=== PATIENT | female | born 1965 | race Caucasian/White ===

== ENCOUNTER 2017-09-23 21:38 | Emergency (ER) | payer OTHER ==
[~2017-09-23] VITALS: Ht 152.4 cm; Wt 79.5 kg
[2017-09-23 21:41] VITALS: BP 172/94; PULSE 94; RESP 16; TEMP 98.8; O2SAT 95
--- NOTE | 2017-09-23 22:22 | RADRPT ---
EXAM DATE/TIME: 09/23/2017 22:03 [facility] COMPARISON: No previous studies available for comparison. INDICATIONS : Pain from fall. MEDICAL HISTORY : None. SURGICAL HISTORY : None. ENCOUNTER: Initial ACUITY: 1 day PAIN SCORE: 7/10 LOCATION: Lower back. FINDINGS: 3 views of lumbar spine. Bone alignment within normal limits. No evidence of fracture. Small endplat e osteophytes at L2-3 and L3-4. Moderate severity bony facet hypertrophy at L4-5 and L5-S1. Surgical clips in the right upper quadrant of the abdomen. Large endplate osteophytes anteriorly in the lower thoracic spine. 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 No evidence of fracture. Joel Molina MD on September 23, 2017 at 22:16 Board Certified Radiologist. This report was verified electronically.
--- NOTE | 2017-09-23 22:23 | RADRPT ---
EXAM DATE/TIME: 09/23/2017 22:04 [facility] COMPARISON: No previous studies available for comparison. INDICATIONS : Pain from fall. MEDICAL HISTORY : None. SURGICAL HISTORY : None. ENCOUNTER: Initial ACUITY: 1 day PAIN SCORE: 2/10 LOCATION: Right wrist. FINDINGS: 3 views right wrist. Bone alignment within normal limits. No evidence of fracture. Moderate-sized os teophytes and moderate narrowing of the thumb carpometacarpal joint. Small osteophyte at the scaphoid -trapezium-trapezoid joint and radiocarpal joint. 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 No evidence of fracture. Joel Molina MD on September 23, 2017 at 22:20 Board Certified Radiologist. This report was verified electronically.
--- NOTE | 2017-09-23 22:24 | RADRPT ---
EXAM DATE/TIME: 09/23/2017 22:00 [facility] COMPARISON: WRIST RIGHT COMPLETE ([id number]), September 23, 2017, 22:04. INDICATIONS : Pain from fall. MEDICAL HISTORY : None. SURGICAL HISTORY : None. ENCOUNTER: Initial ACUITY: 1 day PAIN SCORE: 2/10 LOCATION: Bilateral chest FINDINGS: Single AP view of the chest. The lungs are clear. Cardiomediastinal silhouette within normal limits. No evidence of pleural effusion or pneumothorax. CONCLUSION: No acute cardiopulmonary disease identified. Joel Molina MD on September 23, 2017 at 22:21 Board Certified Radiologist. This report was verified electronically.
[2017-09-23] MEDS ORDERED: IBUP1TAB5 PO (23:30)
[2017-09-23] MEDS ORDERED: CYCL10TA PO (23:30)
[2017-09-23] MEDS ORDERED: IBUPROFEN 600 MG TAB PO ONE (23:30)
[2017-09-23] MEDS ORDERED: CYCLOBENZAPRINE HCL 10 MG TAB PO ONE (23:30)
--- NOTE | 2017-09-23 23:31 | PD ---
HPI . Fall Chief Complaint: Fall Time Seen by Provider: 23:21 Travel History International Travel<30 days: No Contact w/Intl Traveler<30days: No Traveled to known affect area: No History of Present Illness HPI 2-year-old female status post fall onto her right buttocks and right side, the patient went to sit on a stool that slipped out from under her. Patient notes PAIN Right lower back, right wrist. Patient denies any head injury, loss of consciousness, neck pain or stiffness, focal weakness numbness or tingling or incontinence. PFSH Past Medical History Narrative Medical Patient denies any slipping past medical history Medical History: Denies Significant Hx Diminished Hearing: No ?: Not Menopausal: Yes Past Surgical History Cholecystectomy: Yes Social History Alcohol Use: No Tobacco Use: No Substance Use: No Allergies-Medications (Allergen,Severity, Reaction): Coded Allergies: No Known Allergies (Unverified , 09/23/17) Narrative Medication Allergies and medications reviewed Review of Systems Except as stated in HPI: all other systems reviewed are Neg General / Constitutional: No: Fever Eyes: No: Visual changes HENT: No: Headaches Cardiovascular: No: Chest Pain or Discomfort Respiratory: No: Shortness of Breath Gastrointestinal: No: Abdominal Pain Genitourinary: No: Dysuria Musculoskeletal: Positive: Arthralgias, Pain, No: Limited ROM Skin: No Rash Neurologic: No: Weakness Psychiatric: No: Depression Endocrine: No: Polydipsia Hematologic/Lymphatic: No: Easy Bruising Physical Exam Narrative GENERAL: Awake alert oriented 3 no acute distress SKIN: Warm and dry. Color is normal diaphoresis cyanosis or pallor HEAD: Atraumatic. Normocephalic. EYES: Pupils equal and round. No scleral icterus. No injection or drainage. ENT: No nasal bleeding or discharge. Mucous membranes pink and moist. NECK: Trachea midline. No JVD. CARDIOVASCULAR: Regular rate and rhythm. RESPIRATORY: No accessory muscle use. Clear to auscultation. Breath sounds equal bilaterally. Chest wall nontender GASTROINTESTINAL: Abdomen soft, non-tender, nondistended. Hepatic and splenic margins not palpable. MUSCULOSKELETAL: Right wrist mildly tender, no obvious lesions. NEUROLOGICAL: Awake and alert. No obvious cranial nerve deficits. Motor grossly within normal limits. Five out of 5 muscle strength in the arms and legs. Normal speech. PSYCHIATRIC: Appropriate mood and affect; insight and judgment normal. Data Data Last Documented VS Vital Signs Date Time Temp Pulse Resp B/P (MAP) Pulse Ox O2 Delivery O2 Flow Rate FiO2 09/23/17 21:41 98.8 94 16 172/94 (120) 95 Orders Orders Spine, Lumbar - Ltd (Ap & Lat) (09/23/17 ) Wrist, Complete ([id number]) (09/23/17 ) Chest, Single Ap (09/23/17 ) Ibuprofen (Motrin) (09/23/17 23:30) Cyclobenzaprine (Flexeril) (09/23/17 23:30) MDM Medical Decision Making Medical Screen Exam Complete: Yes Emergency Medical Condition: Yes Medical Record Reviewed: Yes Differential Diagnosis Right wrist injury, lower back injury, right chest wall injury Narrative Course Chest x-ray negative, right wrist x-ray negative, lumbar spine x-ray negative. Patient is ambulatory has full range of motion and no difficulty breathing. Discharge Diagnosis Primary Impression: Right wrist sprain Qualified Codes: S63.501A - Unspecified sprain of right wrist, initial encounter Additional Impressions: Lumbar strain Qualified Codes: S39.012A - Strain of muscle, fascia and tendon of lower back , initial encounter Chest wall contusion Qualified Codes: S20.211A - Contusion of right front wall of thorax, initial encounter Patient Instructions: Chest Wall Pain (ED), General Instructions, Low Back Strain (ED), Wrist Sprain (ED) Additional Instructions: Ice affected areas. Most relaxants and anti-inflammatories as prescribed as needed. Follow-up with your doctor. Return for worsening Scripts Cyclobenzaprine (Flexeril) 10 Mg Tab 10 MG PO TID for Muscle Spasm, #15 TAB 0 Refills Prov: Franck Ladd MD 09/23/17 Ibuprofen (Ibuprofen) 400 Mg Tab 400 MG PO Q8H Y for PAIN SCALE 1 TO 10, #15 TAB 0 Refills Prov: Franck Ladd MD 09/23/17 Disposition: 01 DISCHARGE HOME Condition: Stable Franck Ladd MD Sep 23, 2017 23:30
== END 2017-09-23 23:54 | disposition home or self-care (01) ==
LOC: NEPE 21:38
DX: S63.501A Unspecified sprain of right wrist, initial encounter (principal); S39.012A Strain of muscle, fascia and tendon of lower back, initial encounter; S20.211A Contusion of right front wall of thorax, initial encounter; W01.0XXA Fall on same level from slipping, tripping and stumbling without subsequent striking against object, initial encounter
CPT/HCPCS: 71045; 72100; 73110; 99284